=== PATIENT | female | born 1995 | race Caucasian/White ===

== ENCOUNTER 2023-05-28 03:14 | Emergency (ER) | payer MEDICAID ==
[~2023-05-28] VITALS: Ht 165.1 cm; Wt 53.5 kg
[2023-05-28 03:15] VITALS: BP 128/85; PULSE 68; RESP 16; TEMP 97.7; O2SAT 98
[2023-05-28] MEDS ORDERED: BETA1CRE2 TP (04:33)
[2023-05-28 04:43] VITALS: BP 128/85; PULSE 68; RESP 16; TEMP 97.7; O2SAT 98
== END 2023-05-28 04:43 | disposition home or self-care (01) ==
LOC: MED 03:14
DX: R21 Rash and other nonspecific skin eruption (principal); Z79.899 Other long term (current) drug therapy
CPT/HCPCS: 99282